=== PATIENT | female | born 1975 | race Caucasian/White ===

== ENCOUNTER 2016-12-02 01:44 | Emergency (ER) | payer MEDICAID ==
[~2016-12-02] VITALS: Ht 157.5 cm; Wt 81.6 kg
[2016-12-02 01:50] VITALS: BP 144/78
--- NOTE | 2016-12-02 02:53 | NUR ---
Patient ambulated to bed 7. RN evaluating patient at bedside.
--- NOTE | 2016-12-02 02:55 | NUR ---
PATIENT PRESENTS TO ED WITH C/O POOLE . PT DENIES N/V/D; SKIN IS PINK/WARM/DRY; AAOX4 WITH EVEN AND STEADY GAIT; LUNGS CLEAR BL; HR EVEN AND REGULAR; PT DENIES ANY FEVER, CP, SOB, OR COUGH AT THIS TIME; PATIENT STATES PAIN OF 9/10 AT THIS TIME; VSS; PATIENT POSITIONED FOR COMFORT; HOB ELEVATED; BEDRAILS UP X2; BED DOWN. ER MD MADE AWARE OF PT STATUS.
[2016-12-02] MEDS ORDERED: PROCHLORPERAZINE 10 MG/2 ML VIAL IM ONE (03:15)
[2016-12-02] MEDS ORDERED: diphenhydrAMINE 50 MG/ML VIAL IM ONE (03:15)
[2016-12-02 04:29] VITALS: BP 106/67
--- NOTE | 2016-12-02 04:30 | NUR ---
Patient discharged with v/s stable. Written and verbal after care instructions given and explained. Patient alert, oriented and verbalized understanding of instructions. Ambulatory with steady gait. All questions addressed prior to discharge. ID band removed. Patient advised to follow up with PMD. Rx of BENADRYL 25 MG, COMPAZINE 10 MG given. Patient educated on indication of medication including possible reaction and side effects. Opportunity to ask questions provided and answered.
== END 2016-12-02 04:30 | disposition home or self-care (01) ==
LOC: MED 01:44
DX: G43.909 Migraine, unspecified, not intractable, without status migrainosus (principal); R03.0 Elevated blood-pressure reading, without diagnosis of hypertension; R11.2 Nausea with vomiting, unspecified
CPT/HCPCS: 81002; 81025; 96372; 99284; J0780; J1200